=== PATIENT | male | born 1970 | race Caucasian/White ===

== ENCOUNTER → 2020-05-26 | Outpatient (CLI) | payer BC ==
[~2020-05-26] MED LIST: NO HOME MEDICATIONS; PEPCID 20MG TAB20 MG
== END ==
LOC: MHCPAIN 09:15
DX: M47.812 Spondylosis without myelopathy or radiculopathy, cervical region (principal); M54.2 Cervicalgia; G89.29 Other chronic pain; M54.12 Radiculopathy, cervical region; M54.5 Low back pain
CPT/HCPCS: G0463

== ENCOUNTER → 2020-05-29 | Outpatient (CLI) | payer BC | LOC: MHCPAIN 08:27 | DX: M47.812 Spondylosis without myelopathy or radiculopathy, cervical region (principal); M54.2 Cervicalgia ==

== ENCOUNTER → 2020-06-09 | Outpatient (CLI) | payer BC | LOC: MHCPAIN 09:30 | DX: M47.812 Spondylosis without myelopathy or radiculopathy, cervical region (principal); M54.12 Radiculopathy, cervical region; G89.29 Other chronic pain | CPT/HCPCS: G0463 ==

== ENCOUNTER → 2021-03-30 | Outpatient (CLI) | payer BC | LOC: COL.RAD 12:33 | DX: M47.22 Other spondylosis with radiculopathy, cervical region (principal); M48.02 Spinal stenosis, cervical region; M48.03 Spinal stenosis, cervicothoracic region; Z98.1 Arthrodesis status ==